=== PATIENT | female | born 1940 | race Caucasian/White ===

== ENCOUNTER 2016-12-14 09:06 | Outpatient (CLI) | payer MEDICARE, OTHER | END 2016-12-14 09:07 | disposition home or self-care (01) | DX: M81.0 Age-related osteoporosis without current pathological fracture (principal) ==

== ENCOUNTER 2016-12-14 09:07 | Outpatient (CLI) | payer MEDICARE, OTHER | END 2016-12-14 09:08 | disposition home or self-care (01) | DX: Z12.31 Encounter for screening mammogram for malignant neoplasm of breast (principal) ==

== ENCOUNTER 2017-09-05 10:41 | Outpatient (CLI) | payer MEDICARE, OTHER ==
--- NOTE | 2017-09-05 12:40 | CT Report ---
CT BRAIN WITHOUT CONTRAST: 09/05/2017 CLINICAL INDICATION: Vertigo, blurred vision. TECHNIQUE: Axial CT images of the brain were obtained without intravenous contrast. No previous CT is available for comparison. In accordance with CT protocol optimization, one or more of the following dose reduction techniques w ere utilized for this exam: automated exposure control, adjustment of mA and/or KV based on patient size, or use of iterative reconstructive technique. FINDINGS: The ventricles and sulci demonstrate mild symmetric enlargement. Chronic ischemic changes are seen in the periventricular white matter structures. There is no evidence of acute hemorrhage, mass effect, or midline shift. The basilar cisterns are patent. There is an air-fluid level in the right maxillary sinus, compatible with acute sinusitis. The visualized orbital contents are unremark able. IMPRESSION: ATROPHY AND CHRONIC ISCHEMIC CHANGES. ACUTE RIGHT MAXILLARY SINUS DISEASE. JOB #: [id number] EXT JOB #:[id number]
== END 2017-09-05 10:42 | disposition home or self-care (01) ==
LOC: DI 10:41
PROVIDERS: ATTEND Nurse Practitioner Family
DX: R42 Dizziness and giddiness (principal); H53.8 Other visual disturbances; G31.9 Degenerative disease of nervous system, unspecified; I67.82 Cerebral ischemia; J01.00 Acute maxillary sinusitis, unspecified
CPT/HCPCS: 70450

== ENCOUNTER 2017-12-20 12:54 | Outpatient (CLI) | payer MEDICARE, OTHER ==
--- NOTE | 2017-12-20 17:49 | CT Report ---
DATE OF SERVICE: 12/20/2017 CT BRAIN WITHOUT CONTRAST: 12/20/2017 CLINICAL INDICATION: Fall, head trauma, pain. COMPARISON: 09/05/2017. TECHNIQUE: Axial CT images of the brain were obtained without intravenous contrast. FINDINGS: The ventricles and sulci again demonstrate symmetric enlargement, compatible with atrophy. Chronic ischemic changes in the periventricular white matter structures are stable. There is no evidence of acute hemorrhage, mass effect, or midline shift. Right maxillary sinus disease is stable. The visualized intraorbital contents are unremarkable. No calvarial fracture is appreciated. IMPRESSION: STABLE ATROPHY AND CHRONIC ISCHEMIC CHANGES. NO SIGNIFICANT INTERVAL CHANGE. NO EVIDENCE OF ACUTE HEMORRHAGE. In accordance with CT protocol optimization, one or more of the following dose reduction techniques were utilized for this exam: automated exposure control, adjustment of mA and/or KV based on patient size, or use of iterative reconstructive technique. TD: 12/20/2017 18:48
--- NOTE | 2017-12-20 17:58 | XRAY Report ---
DATE OF SERVICE: 12/20/2017 THREE VIEW RIGHT KNEE: 12/20/2017 CLINICAL INDICATION: Pain, decreased range of motion. FINDINGS: AP, lateral, sunrise views of the right knee demonstrate mild osteoarthritis, with small osteophytes. There is no evidence of acute fracture or dislocation. No effusion is present. IMPRESSION: MILD RIGHT KNEE OSTEOARTHRITIS. TD: 12/20/2017 18:58
== END 2017-12-20 12:55 | disposition home or self-care (01) ==
LOC: DI 12:54
PROVIDERS: ATTEND Physician Assistant
DX: I67.82 Cerebral ischemia (principal); G31.9 Degenerative disease of nervous system, unspecified; M17.11 Unilateral primary osteoarthritis, right knee
CPT/HCPCS: 70450

== ENCOUNTER 2018-01-14 11:13 | Outpatient (CLI) | payer MEDICARE, OTHER ==
--- NOTE | 2018-01-15 13:28 | Mammography Report ---
DIGITAL SCREENING MAMMOGRAM: 01/14/2018 CLINICAL INDICATION: A 77-year-old, for screening. COMPARISON: 12/2016, 11/2015, 07/2013, 04/2012. TECHNIQUE: Routine CC and MLO projections were obtained of the breasts. FINDINGS: The breasts demonstrate scattered fibroglandular densities bilaterally. Coarse and punctate, typically benign calcifications are present. No suspicious masses, clustered microcalcifications, or regions of architectural distortion are identified. IMPRESSION: BENIGN FINDINGS. RECOMMENDATION: ROUTINE ANNUAL SCREENING UNLESS OTHERWISE CLINICALLY INDICATED. BIRADS CATEGORY 2-BENIGN FINDINGS. STANDARD QUALIFYING STATEMENTS: 1. This examination was reviewed with the aid of Computer-Aided Detection (CAD). 2. A negative or benign imaging report should not delay biopsy if clinically suspicious findings are present. Consider surgical consultation if warranted. More than 5% of cancers are not identified by imaging. 3. Dense breasts may obscure an underlying neoplasm. TD: 01/15/2018 13:26
== END 2018-01-14 11:14 | disposition home or self-care (01) ==
LOC: DI 11:13
PROVIDERS: ATTEND Physician Assistant
DX: Z12.31 Encounter for screening mammogram for malignant neoplasm of breast (principal)
CPT/HCPCS: 77067

== ENCOUNTER 2019-01-21 14:35 | Outpatient (CLI) | payer MEDICARE, OTHER ==
--- NOTE | 2019-01-22 10:12 | Ultrasound Report ---
Reason: OSTEOPOROSIS/DIZZINESS GIDDINESS Procedure Date: 01/21/2019 Accession Number: [id number] / [id number] Procedure: US - Carotid Doppler Complete CPT Code: FULL RESULT: EXAM: BILATERAL CAROTID AND VERTEBRAL ARTERY DUPLEX DOPPLER ULTRASOUND: EXAM DATE: 01/21/2019 04:08 PM CLINICAL HISTORY: Osteoporosis, dizziness, giddiness. COMPARISON: None. TECHNIQUE: Grayscale imaging, color Doppler, and duplex spectral Doppler were used to evaluate the carotid and vertebral arteries bilaterally. Static images were obtained. FINDINGS: The right carotid system demonstrates predominantly echogenic mild to moderate atherosclerotic disease centered around the bifurcation with up to 50% focal plaque, mixed hypoechoic soft and echogenic atherosclerotic by color Doppler and grayscale evaluation. The left external carotid artery and proximal internal carotid artery as well as left bifurcation demonstrate predominantly shadowing calcific plaque which limits visual assessment but appears subjectively less than 50%. Normal antegrade flow is present in bilateral vertebral arteries. Spectral waveforms demonstrate preserved brisk systolic upstroke throughout both carotid systems. VELOCITIES (cm/sec): RIGHT: CCA mid: PSV 66.5 cm/sec CCA dist: PSV 70.6 cm/sec ICA prox: PSV 70.0 cm/sec, EDV 17.9 cm/sec ICA mid: PSV 69.7 cm/sec, EDV 20.1 cm/sec ICA dist: PSV 57.4 cm/sec, EDV 18.7 cm/sec ECA: PSV 75.8 cm/sec Vert: PSV 39.6 cm/sec ICA/CCA: 0.99 LEFT: CCA mid: PSV 70.3 cm/sec CCA dist: PSV 62.1 cm/sec ICA prox: PSV 54.5 cm/sec, EDV 18.6 cm/sec ICA mid: PSV 61.0 cm/sec, EDV 17.1 cm/sec ICA dist: PSV 52.5 cm/sec, EDV 16.0 cm/sec ECA: PSV 92.9 cm/sec Vert: PSV 39.1 cm/sec ICA/CCA: 0.86 ICA diameter stenosis: Right: <50% by velocity and <70% by NASCET criteria. Left: <50% by velocity and <70% by NASCET criteria. IMPRESSION: 1.Subjectively less than 50% luminal narrowing of mild to moderate atherosclerotic disease centered about the carotid bifurcations bilaterally. 2. In the right carotid artery there are no elevated carotid artery velocities to suggest hemodynamically significant stenosis. 3. In the left carotid artery there are no elevated carotid artery velocities to suggest hemodynamically significant stenosis. 4. Normal antegrade flow is present in bilateral vertebral arteries. General Recommendations: Stenosis =50% ICA - Follow-up ultrasound 6-12 months Stenosis <50% ICA - High Risk Patient with plaque - Follow-up ultrasound 1-2 years Normal Study but High Risk Patient - Follow-up ultrasound 3-5 years Management recommendations and diagnostic criteria are based on current IAC endorsed standards in Carotid Artery Stenosis: Grayscale and Doppler Ultrasound Diagnosis. Validated velocity measurements with angiographic measurements and velocity criteria are extrapolated from diameter data as defined by the Society of Radiologists in Ultrasound Consensus Conference Radiology 2003; 229;340-346. RADIA
--- NOTE | 2019-01-22 16:15 | CT Report ---
Reason: OSTEOPOROSIS/DIZZINESS 7 GIDDINESS Procedure Date: 01/21/2019 Accession Number: [id number] / [id number] Procedure: CT - HEAD WO CPT Code: FULL RESULT: EXAM: CT HEAD EXAM DATE: 01/21/2019 04:31 PM. CLINICAL HISTORY: OSTEOPOROSIS/DIZZINESS 7 GIDDINESS. COMPARISON: HEAD W/O 12/20/2017 1:14 PM. TECHNIQUE: Multiaxial CT images were obtained from the foramen magnum to the vertex. Reformats: Sagittal and coronal. IV contrast: None. In accordance with CT protocol optimization, one or more of the following dose reduction techniques were utilized for this exam: automated exposure control, adjustment of mA and/or KV based on patient size, or use of iterative reconstructive technique. FINDINGS: Parenchyma: No intraparenchymal hemorrhage. No evidence of mass, midline shift, or CT findings of infarction. Madsen-white differentiation is distinct. Chronic ischemic white matter changes are again seen, similar to before. Extraaxial Spaces: Symmetric prominence of extra-axial spaces in the ventricular system. No subdural or epidural collections identified. Ventricles: Stable in size and configuration. Sinuses and Orbits: Imaged paranasal sinuses, orbits, and mastoids show no significant abnormality. Bones: No evidence of fracture or calvarial defect. Other: None. IMPRESSION: Mild changes of chronic small vessel ischemic disease, similar to prior. No acute intracranial abnormality. RADIA
== END 2019-01-21 14:36 | disposition home or self-care (01) ==
LOC: DI 14:35
PROVIDERS: ATTEND Physician Assistant
DX: R42 Dizziness and giddiness (principal); M81.0 Age-related osteoporosis without current pathological fracture
CPT/HCPCS: 70450; 93880

== ENCOUNTER 2019-02-13 14:10 | Outpatient (CLI) | payer MEDICARE, OTHER ==
--- NOTE | 2019-02-16 08:46 | DEXA Report ---
Reason: OSTEOPOROSIS/DIZZINESS GIDDINESS Procedure Date: 02/13/2019 Accession Number: [id number] / [id number] Procedure: DEX - Dexa Spine and/or Hip CPT Code: FULL RESULT: EXAM: Dexa Spine and/or Hip DATE: 02/13/2019 2:31 PM CLINICAL HISTORY: OSTEOPOROSIS/DIZZINESS GIDDINESS TECHNIQUE: Dual energy x-ray absorptiometry (DXA) was performed on a Doblet System. Regions measured are the AP Spine, femoral neck, and if needed forearm. COMPARISON: 12/14/2016 In accordance with the International Society for Clinical Densitometry (ISCD) guidelines, data from previous exams may be reanalyzed using current recommendations and techniques. This is done to allow a more accurate basis for comparison with the current study. FINDINGS: The data for the lumbar spine is as follows: BMD (g/cm/cm) T-SCORE Z-SCORE REGION L1 0.784 -2.9 -1.6 L2 0.849 -2.9 -1.7 L3 0.846 -3.0 -1.7 L4 0.925 -2.3 -1.0 TOTAL 0.857 -2.7 -1.4 NOTE: All evaluable vertebrae are used for classification The data for the hip is as follows: BMD (g/cm/cm) T-SCORE Z-SCORE REGION Neck 0.635 -2.9 -1.1 TOTAL 0.715 -2.3 -0.7 NOTE: The femoral neck or total proximal femur, whichever is lowest, is used for classification. DXA RESULTS SUMMARY: Spine SCAN DATE AGE BMD CHANGE VS CHANGE VS PREVIOUS PREVIOUS % [age]/2019 [age] 0.857 -0.069* -7.5* 12[age]14[birth year]2016 [age] 0[age]926 * Denotes significant change at the 95% confidence level. Denotes dissimilar scan types or analysis methods. DXA RESULTS SUMMARY: Hip SCAN DATE AGE BMD CHANGE VS CHANGE VS PREVIOUS PREVIOUS % [birth year]13/2019 80.7 0.715 -0.070* -8.9* 12[age]14[birth year]2016 [age] 0.785 * Denotes significant change at the 95% confidence level. Denotes dissimilar scan types or analysis methods. IMPRESSION: THE WHO CLASSIFICATION BASED ON THE INTERNATIONAL REFERENCE STANDARD IS OSTEOPOROSIS. THE FRACTURE RISK IS HIGH. RECOMMENDATION: Patients with diagnosis of osteoporosis or osteopenia should have regular bone mineral density assessment. For those eligible for Medicare, routine testing is allowed once every 2 years. Testing frequency can be increased for patients who have rapidly progressing disease or for those who are receiving medical therapy to restore bone mass. COMMENT: World Health Organization (WHO) definitions for osteoporosis and osteopenia: NORMAL BMD: T-score at -1.0 or higher, fracture risk is low OSTEOPENIA BMD: T-score between -1.0 and -2.5, fracture risk is increased. OSTEOPOROSIS BMD: T-score at -2.5 or lower, fracture risk is high. National Osteoporosis Foundation recommends: 1. Obtain adequate dietary calcium (at least 1200 mg per day) and vitamin D (400-800 international units per day). 2. Participate, as appropriate, in regular weightbearing and muscle-strengthening exercise. 3. Avoid tobacco use and reduce alcohol and caffeine intake. 4. For more detailed information see the website at www.NOF.org.
== END 2019-02-13 14:11 | disposition home or self-care (01) ==
LOC: DI 14:10
PROVIDERS: ATTEND Physician Assistant
DX: M81.0 Age-related osteoporosis without current pathological fracture (principal)
CPT/HCPCS: 77080

== ENCOUNTER 2019-03-18 15:32 | Outpatient (CLI) | payer MEDICARE, OTHER ==
--- NOTE | 2019-03-18 16:59 | Mammography Report ---
Reason: SCREENING MAMMO Procedure Date: 03/18/2019 Accession Number: [id number] / [id number] Procedure: MAIKEL - Screening Mammo w/Chad CPT Code: FULL RESULT: EXAM: Screening Mammo w/Chad DATE: 03/18/2019 4:02 PM CLINICAL HISTORY: Screening examination. TECHNIQUE: (B) - Bilateral CC and MLO views were obtained. COMPARISON: 01/14/2018, 12/14/2016 PARENCHYMAL PATTERN: (A) - The breasts demonstrate scattered fibroglandular densities bilaterally. FINDINGS: There are no suspicious masses, calcifications, or areas of distortion. IMPRESSION: Negative examination. BI-RADS category 1. RECOMMENDATION: (ANNUAL) - Recommend routine annual screening mammography. BI-RADS CATEGORY: (1) - Negative. STANDARD QUALIFYING STATEMENTS: 1. This examination was not reviewed with the aid of Computer-Aided Detection (CAD). 2. A negative or benign imaging report should not preclude biopsy if clinically suspicious findings are present. 3. Dense breasts may obscure an underlying neoplasm. 4. This examination was reviewed with the aid of 3D breast imaging (tomosynthesis).
== END 2019-03-18 15:33 | disposition home or self-care (01) ==
LOC: DI 15:32
PROVIDERS: ATTEND Physician Assistant
DX: Z12.31 Encounter for screening mammogram for malignant neoplasm of breast (principal)
CPT/HCPCS: 77063; 77067

== ENCOUNTER 2019-04-17 12:37 | Outpatient (CLI) | payer MEDICARE, OTHER ==
--- NOTE | 2019-04-18 15:05 | XRAY Report ---
Reason: INTERCOSTAL PAIN Procedure Date: 04/17/2019 Accession Number: [id number] / [id number] Procedure: XR - Chest 2 View X-Ray CPT Code: 46374 FULL RESULT: EXAM: CHEST RADIOGRAPHY EXAM DATE: 04/17/2019 12:55 PM. CLINICAL HISTORY: INTERCOSTAL PAIN. COMPARISON: CHEST 2 VIEW PA/LAT 12/05/2014 8:28 PM. TECHNIQUE: 2 views. FINDINGS: Lungs/Pleura: No focal opacities evident. No pleural effusion. No pneumothorax. Normal volumes. Mediastinum: Heart size is within normal limits. There is thoracic aortic calcification. Other: None. IMPRESSION: No acute intrathoracic plain film abnormality. RADIA
== END 2019-04-17 12:38 | disposition home or self-care (01) ==
LOC: DI 12:37
PROVIDERS: ATTEND Physician Assistant
DX: R07.82 Intercostal pain (principal)
CPT/HCPCS: 71046

== ENCOUNTER 2019-06-03 09:51 | Outpatient (CLI) | payer MEDICARE, OTHER | END 2019-06-03 09:52 | disposition home or self-care (01) | LOC: DI 09:51 | PROVIDERS: ATTEND Physician Assistant | DX: R01.1 Cardiac murmur, unspecified (principal); I34.0 Nonrheumatic mitral (valve) insufficiency | CPT/HCPCS: 93306 ==

== ENCOUNTER 2020-09-22 15:04 | Outpatient (CLI) | payer MEDICARE, OTHER ==
--- NOTE | 2020-09-26 16:24 | Mammography Report ---
BILATERAL DIGITAL SCREENING MAMMOGRAM 3D/2D: 09/22/2020 CLINICAL: Routine screening. Comparison is made to exams dated: 03/15/2019 mammogram, 01/14/2018 mammogram, 12/14/2016 mammogram, mammogram, 07/27/2013 mammogram, and 04/21/2012 mammogram - [facility]. Ther e are scattered fibroglandular elements in both breasts. No significant masses, calcifications, or other findings are seen in either breast. There has been no significant interval change. IMPRESSION: NEGATIVE There is no mammographic evidence of malignancy. A 1 year screening mammogram is recommended. This exam was interpreted at Station ID: [id number]. NOTE: For mammograms, a report in lay terms will be sent to the patient. Approximately 15% of breast malignancies will not be visualized mammographically. In the management of a palpable breast mass, a negative mammogram must not discourage biopsy of a clinically suspicious lesion. Electronically Signed By: Sigrid payan/raquel:09/23/2020 13:29:24 ACR BI-RADS Category 1: Negative 3341F PARENCHYMAL PATTERN: (A) - The breast(s) demonstrate(s) scattered fibroglandular densities. BI-RADS CATEGORY: (1) - 1 RECOMMENDATION: (ANNUAL) - Recommend routine annual screening mammography. [id number] 1 year screening LATERALITY: (B)
== END 2020-09-22 15:05 | disposition home or self-care (01) ==
LOC: DI.N 15:04
PROVIDERS: ATTEND Physician Assistant
DX: Z12.31 Encounter for screening mammogram for malignant neoplasm of breast (principal)
CPT/HCPCS: 77063; 77067

== ENCOUNTER 2021-02-05 13:12 | Emergency (ER) | payer MEDICARE, OTHER ==
--- NOTE | 2021-02-05 13:45 | ED Physician Documentation ---
PD HPI FEMALE - Stated complaint Stated Complaint: BLOOD IN URINE - Chief complaint Chief Complaint: Abd Pain - History obtained from History obtained from: Patient - Additional information Additional information: About a week or 2 of cloudy murky urine and very mild right flank pain. Today she had gross hematuria. There is no urgency or dysuria. Denies fevers or nausea. Review of Systems Constitutional: denies: Fever, Chills Cardiac: denies: Chest pain / pressure, Palpitations Respiratory: denies: Dyspnea, Cough PD PAST MEDICAL HISTORY - Past Medical History Cardiovascular: High cholesterol Respiratory: None Endocrine/Autoimmune: None GI: GERD, Chronic constipation WINE STEWARD: None : Retention, Frequency HEENT: None Psych: None, Depression Musculoskeletal: Osteoarthritis, Osteoporosis Derm: None - Past Surgical History Past Surgical History: Yes General: Appendectomy /WINE STEWARD: Oophrectomy, Other (salpingectomy) - Present Medications Home Medications: Ambulatory Orders Medication Instructions Recorded Confirmed Escitalopram Oxalate [Lexapro] 20 mg PO DAILY 09/19/13 12/05/14 Lamotrigine 50 mg PO BID 09/19/13 12/05/14 Flaxseed/Omega3,6,9/Fatty Acid 1 each PO 10/01/13 12/05/14 [Flax Seed Oil 1,300 mg Softgel] Lorazepam 1 mg PO 10/01/13 12/05/14 Magnesium Oxide [Magnesium] 250 mg PO 10/01/13 12/05/14 Multivitamin [Multi-Vitamin Daily] 1 each PO 10/01/13 12/05/14 Omeprazole [Prilosec] 40 mg PO 10/01/13 12/05/14 Ranitidine HCl [Acid Remote Recruiter] 150 mg PO 10/01/13 12/05/14 Vit D3-Vit K/Berberine/Hops 1 each PO 10/01/13 12/05/14 [Ostera Tablet] Azithromycin [Zithromax] 250 mg PO DAILY #4 tablet 12/05/14 guaiFENesin/CODEINE [Robitussin AC] 5 - 10 ml PO Q6H PRN #120 ml 12/05/14 Ciprofloxacin HCl [Cipro] 500 mg PO BID #20 tablet 02/05/21 - Allergies Allergies/Adverse Reactions: Allergies Allergy/AdvReac Type Severity Reaction Status Date / Time chlordiazepoxide HCl * Allergy Rash Verified 02/05/21 13:23 [From Librium] phenobarbital Allergy Rash Verified 02/05/21 13:23 - Social History Does the pt smoke?: No Smoking Status: Unknown if ever smoked Does the pt drink ETOH?: Yes Does the pt have substance abuse?: No - Immunizations Immunizations are current?: No Immunizations: No immun - POLST Patient has POLST: No PD ED PE NORMAL - Vitals Vital signs reviewed: Yes - General General: Alert and oriented X 3, No acute distress - Abdomen Abdomen: Soft, Non tender - Back Back: No CVA TTP - Neuro Neuro: Alert and oriented X 3, Normal speech Results - Vitals Vitals: Vital Signs - 24 hr 02/05/21 13:15 Temperature 36.7 C Heart Rate 75 Respiratory 17 Rate Blood Pressure 128/68 O2 Saturation 100 Oxygen O2 Source Room air - Labs Labs: Laboratory Tests 02/05/21 13:50 Urine Color YELLOW Urine Clarity CLOUDY Urine pH 7.0 Ur Specific [place] 1.020 Urine Protein 30 H Urine Glucose (UA) NEGATIVE Urine Ketones NEGATIVE Urine Occult Blood LARGE H Urine Nitrite NEGATIVE Urine Bilirubin NEGATIVE Urine Urobilinogen 0.2 (NORMAL) Ur Leukocyte Esterase LARGE H Urine RBC 6-10 H Urine WBC >25 H Ur Squamous Epith Cells RARE Squamous Urine Bacteria Few Ur Microscopic Review INDICATED Urine Culture Comments INDICATED Departure - Departure Disposition: 01 Home, Self Care Clinical Impression: Pyelonephritis Condition: Good Record reviewed to determine appropriate education?: Yes Instructions: ED Kidney Infec Female Prescriptions: Ciprofloxacin HCl [Cipro] 500 mg PO BID #20 tablet Comments: You do have a you have evidence of a urinary tract infection, probably up into the kidney a bit with that pain you are having on the right side. Antibiotic should help. We will culture your urine, if a resistant organism is identified we will call you in a few days to change your antibiotics. Return if you worsen. The blood in the urine should stop after a day or 2. Follow-up with your primary care physician this coming week.
[2021-02-05 14:05] LABS: BILIRUBIN,URINE NEGATIVE (NEGATIVE); GLUCOSE, URINE (UA) NEGATIVE (NEGATIVE); KETONES,URINE (UA) NEGATIVE (NEGATIVE); LEUKOCYTE ESTERASE, URINE LARGE (NEGATIVE); NITRITE,URINE NEGATIVE (NEGATIVE); OCCULT BLOOD,URINE LARGE (NEGATIVE); PROTEIN,URINE 30 mg/dL (NEGATIVE); UROBILINOGEN,URINE 0.2 (NORMAL) E.U./dL (NORMAL)
[2021-02-05 14:16] LABS: BACTERIA,URINE Few /HPF (None Seen); CLARITY,URINE CLOUDY (CLEAR); SQUAMOUS EPITHELIAL CELL,UR RARE Squamous (<= Few); WBC,URINE >25 /HPF (0-5)
[2021-02-05] MEDS ORDERED: CIPROFLOXACIN 250 MG TABLET PO STA (14:17)
[2021-02-05 14:30] VITALS: BP 136/58
== END 2021-02-05 14:30 | disposition home or self-care (01) ==
LOC: ED 13:12
DX: N12 Tubulo-interstitial nephritis, not specified as acute or chronic (principal); I65.22 Occlusion and stenosis of left carotid artery
CPT/HCPCS: 81001; 87077; 87086; 87181; 93880; 99283; A9270; 81003

== ENCOUNTER 2021-02-05 16:19 | Outpatient (CLI) | payer MEDICARE, OTHER ==
--- NOTE | 2021-02-06 08:58 | Ultrasound Report ---
PROCEDURE: Carotid Doppler Complete INDICATIONS: CAROTID ARTERY STENOSIS TECHNIQUE: Color and pulse Doppler interrogation was performed of both carotid systems, with image documentation and velocity measurements. COMPARISON: None. FINDINGS: Right side: Brachial blood pressure: 159/72 mm Hg. Common carotid artery peak systolic velocity: 86.6 cm/sec, previously 70.6 cm/sec. Internal carotid artery peak systolic velocity: 88.8 cm/sec, previously 70.0 cm/sec. Internal carotid artery end diastolic velocity: 20.0 cm/sec, previously 17.9 cm/sec. External carotid artery peak systolic velocity: 104.8 cm/sec, previously 75.8 cm/sec. ICA/CCA peak systolic ratio: 1.1, previously 0.99 . Madsen scale imaging description: There is mild echogenic plaque present in the carotid bifurcation ex tending into the internal carotid artery. There is no flow limiting stenosis noted. Percent internal carotid artery stenosis: Less than 50% . Vertebral artery: Flow direction is antegrade. Left side: Brachial blood pressure: 143/62 mm Hg. Common carotid artery peak systolic velocity: 89.4 cm/sec, previously 70.3 cm/sec. Internal carotid artery peak systolic velocity: 141.2 cm/sec, previously 61.0 cm/sec. Internal carotid artery end diastolic velocity: 29.6 cm/sec, previously 17.1 cm/sec. External carotid artery peak systolic velocity: 98.0 cm/sec, previously 92.9 cm/sec. ICA/CCA peak systolic ratio: 0.6, previously 0.86 . Madsen scale imaging description: By velocity measurements, stenosis is between 50 and 69%. By graysca le imaging, stenosis is 50% or less. Percent internal carotid artery stenosis: 50% or less . Vertebral artery: Flow direction is antegrade. IMPRESSION: 1. Mild, less than 50% right internal carotid artery stenosis. 2. Left internal carotid artery stenosis is moderate by velocity criteria, 50-69%. By grayscale imagi ng, the stenosis is 50% or less. Reviewed by: Paulino Eugene MD on 02/06/2021 7:57 AM RUST Approved by: Paulino Eugene MD on 02/06/2021 7:57 AM RUST Station ID: [id number]
== END 2021-02-05 16:20 | disposition home or self-care (01) ==
LOC: DI 16:19
PROVIDERS: ATTEND Registered Nurse
DX: I65.22 Occlusion and stenosis of left carotid artery (principal)
CPT/HCPCS: 93880

== ENCOUNTER 2021-03-01 12:58 | Outpatient (CLI) | payer MEDICARE, OTHER ==
--- NOTE | 2021-03-01 16:30 | DEXA Report ---
PROCEDURE: Dexa Spine and/or Hip INDICATIONS: OSTEOPOROSIS TECHNIQUE: Dual energy x-ray absorptiometry (DXA) was performed on a Exepron System. Regions measur ed are the AP Spine, femoral neck, and if needed forearm. COMPARISON: None. FINDINGS: Lumbar Spine: Bone Mineral Density 0.865 g/cm/cm,T score -2.6, compared to -2.7 Left Hip: Bone Mineral Density 0.683 g/cm/cm,T score -2.6, compared to -2.3 Left Femoral Neck: Bone Mineral Density 0.599 g/cm/cm, T score -3.2, compared to -2.9 (T score greater or equal to -1.0: NORMAL) (T score from -1.1 to -2.4: OSTEOPENIA) (T score less than or equal to -2.5 to: OSTEOPOROSIS) Impression: Progressive osteoporosis within the left femoral neck as well as progression from osteope josefina to osteoporosis in the left hip. Relatively stable appearance of osteoporosis in the spine. Patients with diagnosis of osteoporosis or osteopenia should have regular bone mineral density assess ment. For those eligible for Medicare, routine testing is allowed once every 2 years. Testing frequ ency can be increased for patients who have rapidly progressing disease or for those who are receivin g medical therapy to restore bone mass. Reviewed by: Dianne Priest MD on 03/01/2021 4:28 PM PDT Approved by: Dianne Priest MD on 03/01/2021 4:28 PM PDT Station ID: [id number]
== END 2021-03-01 12:59 | disposition home or self-care (01) ==
LOC: DI 12:58
PROVIDERS: ATTEND Registered Nurse
DX: M81.0 Age-related osteoporosis without current pathological fracture (principal)

== ENCOUNTER 2021-10-27 16:05 | Outpatient (CLI) | payer MEDICARE, OTHER | END 2021-10-27 23:59 | disposition home or self-care (01) | LOC: LAB 16:05 | PROVIDERS: ATTEND Physician Assistant | DX: N30.01 Acute cystitis with hematuria (principal) | CPT/HCPCS: 87077; 87086; 87181 ==

== ENCOUNTER 2021-11-18 08:00 | Outpatient (CLI) | payer MEDICARE, OTHER ==
[2021-11-18 18:10] LABS: BILIRUBIN,URINE NEGATIVE (NEGATIVE); GLUCOSE, URINE (UA) NEGATIVE (NEGATIVE); KETONES,URINE (UA) NEGATIVE (NEGATIVE); LEUKOCYTE ESTERASE, URINE LARGE (NEGATIVE); NITRITE,URINE NEGATIVE (NEGATIVE); OCCULT BLOOD,URINE MODERATE (NEGATIVE); PH,URINE 6.5 PH (5.0-7.5); PROTEIN,URINE NEGATIVE (NEGATIVE); UROBILINOGEN,URINE 0.2 (NORMAL) E.U./dL (NORMAL)
[2021-11-18 18:13] LABS: CLARITY,URINE HAZY (CLEAR)
[2021-11-18 18:26] LABS: BACTERIA,URINE Many /HPF (None Seen); RBC,URINE TNTC /HPF (0-5); SQUAMOUS EPITHELIAL CELL,UR NONE SEEN (<= Few); WBC,URINE >25 /HPF (0-5)
== END 2021-11-18 23:59 ==
LOC: LAB 08:00
PROVIDERS: ATTEND Emergency Medicine
DX: R39.15 Urgency of urination (principal)
CPT/HCPCS: 81001; 87086

== ENCOUNTER 2021-12-13 15:13 | Outpatient (CLI) | payer MEDICARE, OTHER ==
--- NOTE | 2021-12-13 16:41 | XRAY Report ---
PROCEDURE: Chest 2 View X-Ray INDICATIONS: SUBACUTE COUGH TECHNIQUE: 2 view(s) of the chest. COMPARISON: April 17, 2019. FINDINGS: SUPPORT DEVICES: None. LUNGS/PLEURA: Biapical pleural thickening/scarring. Hyperaeration with coarsened interstitial marking s. No focal consolidation, pleural effusion or space-occupying pneumothorax. MEDIASTINUM: The cardiomediastinal silhouette is within normal limits. BONES/SOFT TISSUES: No acute abnormality. IMPRESSION: 1.No acute cardiopulmonary abnormality. Reviewed by: Elian Sykes MD on 12/13/2021 4:39 PM PST Approved by: Elian Sykes MD on 12/13/2021 4:39 PM PST Station ID: [id number]
== END 2021-12-13 15:14 | disposition home or self-care (01) ==
LOC: DI 15:13
PROVIDERS: ATTEND Registered Nurse
DX: R05.2 Subacute cough (principal)

== ENCOUNTER 2022-01-18 11:19 | Outpatient (CLI) | payer MEDICARE, OTHER ==
--- NOTE | 2022-01-18 17:07 | XRAY Report ---
PROCEDURE: Knee 3 View BILAT INDICATIONS: BILATERAL KNEE PAIN TECHNIQUE: 3 views of the right and left knee(s) were acquired. COMPARISON: None. FINDINGS: Bones: No fractures or dislocations. No suspicious bony lesions. Moderate osteophytic degenerative changes noted in the right knee lateral compartment, left knee medial compartment bilateral knee blackman llofemoral compartments. Mild osteophytic degenerative changes noted in the right knee medial compart ment and the left knee lateral compartment. Soft tissues: No joint effusion. No suspicious soft tissue calcifications. IMPRESSION: Bilateral knee osteoarthritis. Reviewed by: Magaly Weber MD, PhD on 01/18/2022 5:06 PM PST Approved by: Magaly Weber MD, PhD on 01/18/2022 5:06 PM PST Station ID: [id number]
== END 2022-01-18 11:20 | disposition home or self-care (01) ==
LOC: DI.S 11:19
PROVIDERS: ATTEND Registered Nurse
DX: M17.0 Bilateral primary osteoarthritis of knee (principal)

== ENCOUNTER 2022-05-12 08:00 | Outpatient (CLI) | payer MEDICARE, OTHER ==
--- NOTE | 2022-05-12 16:24 | XRAY Report ---
PROCEDURE: Hip w/Pelvis 1V LT INDICATIONS: LEFT HIP PAIN AFTER FALL TECHNIQUE: AP pelvis with AP and lateral views of the left hip. COMPARISON: None. FINDINGS: Bones: No fractures or dislocations. Pelvic ring appears intact. No suspicious bony lesions. Dege nerative changes are seen in the included lower lumbar spine. Mild bilateral hip osteoarthrosis. Soft tissues: The visualized bowel gas pattern is normal. No suspicious soft tissue calcifications. IMPRESSION: No acute osseous abnormality. If there is clinical concern or persistent symptoms, addit ional imaging such as repeat radiographs or advanced imaging (e.g. CT, MRI) may be helpful for furthe r evaluation. Reviewed by: Jose Antonio Mckeon MD on 05/12/2022 4:22 PM PDT Approved by: Jose Antonio Mckeon MD on 05/12/2022 4:22 PM PDT Station ID: [id number]
== END 2022-05-12 23:59 | disposition home or self-care (01) ==
LOC: DI.S 08:00
PROVIDERS: ATTEND Physician Assistant Medical
DX: M25.552 Pain in left hip (principal)

== ENCOUNTER 2022-09-26 18:15 | Emergency (ER) | payer MEDICARE, OTHER ==
[2022-09-26] MEDS ORDERED: ACETAMINOPHEN 500 MG TABLET PO STA (18:32)
--- NOTE | 2022-09-26 18:34 | ED Physician Documentation ---
PD HPI MAJOR TRAUMA - Stated complaint Stated Complaint: FALL/RIB PX - Chief complaint Chief Complaint: Trauma Hd/Nk - History obtained from History obtained from: Patient - Additional information Additional information: This is a very pleasant 82-year-old woman who had a trip and fall, mechanical fall without syncope at [facility]. She is anticoagulated on Eliquis for atrial fibrillation. She hit the left side of her head and face on the ground and also injured her left ribs. No other injuries. Here with her . 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 HEENT: None Psych: None, Depression Musculoskeletal: Osteoarthritis, Osteoporosis Derm: None - Past Surgical History Past Surgical History: Yes General: Appendectomy /INSEMINATION WORKER: Oophrectomy, Other (salpingectomy) - Present Medications Home Medications: Ambulatory Orders Medication Instructions Recorded Confirmed Escitalopram Oxalate [Lexapro] 20 mg PO DAILY 09/19/13 09/26/22 Apixaban [Eliquis] 5 mg ORAL BID 09/26/22 09/26/22 Atorvastatin Calcium 40 mg PO HS 09/26/22 09/26/22 HYDROcod/ACETAM 5/325 [[place] 5/325] 1 - 2 tab PO Q6H PRN #20 tablet 09/26/22 Lidocaine Patch 5% [Lidoderm Patch] 1 patch TOP DAILY PRN #10 patch 09/26/22 Metoprolol Succinate [Toprol Xl] 25 mg PO DAILY 09/26/22 09/26/22 - Allergies Allergies/Adverse Reactions: Allergies Allergy/AdvReac Type Severity Reaction Status Date / Time chlordiazepoxide HCl * Allergy Rash Verified 09/26/22 18:21 [From Librium] phenobarbital Allergy Rash Verified 09/26/22 18:21 - Social History Does the pt smoke?: No Smoking Status: Unknown if ever smoked Does the pt drink ETOH?: Yes Does the pt have substance abuse?: No - Immunizations Immunizations are current?: No Immunizations: No immun - POLST Patient has POLST: No PD ED PE NORMAL - Vitals Vital signs reviewed: Yes - General General: Alert and oriented X 3, No acute distress - HEENT HEENT: PERRL, EOMI, Other (Mild tenderness of the left cheek inferior to the orbit. No swelling or obvious ecchymosis.) - Neck Neck: No bony TTP (But will CT given mechanism and advanced age) - Cardiac Cardiac: RRR, No murmur - Respiratory Respiratory: No respiratory distress, Clear bilaterally, Other (Mild diffuse left chest wall tenderness) - Abdomen Abdomen: Soft, Non tender - Back Back: No CVA TTP, No spinal TTP - Derm Derm: Normal color, Warm and dry - Extremities Extremities: No edema, No calf tenderness / cord - Neuro Neuro: Alert and oriented X 3, Normal speech Eye Opening: Spontaneous Motor: Obeys Commands Verbal: Oriented GCS Score: 15 Results - Vitals Vitals: Vital Signs - 24 hr 09/26/22 09/26/22 09/26/22 18:19 18:32 19:34 Temperature 36.2 C L Heart Rate 86 82 80 Respiratory 23 19 24 Rate Blood Pressure 161/89 H 149/86 H O2 Saturation 100 99 100 09/26/22 20:30 Temperature Heart Rate 76 Respiratory 15 Rate Blood Pressure 148/73 H O2 Saturation 98 Oxygen O2 Source Room air - Rads (name of study) CT of the head and cervical spine without contrast without trauma, severe degenerative changes in the spine Radiology: EMP read contemporaneously CT Face Radiology: EMP read contemporaneously (Maxiallary sinus dz, NAD) CT Chest Radiology: EMP read contemporaneously (2 nondisplaced rib fractures, atherosclerosis, cholelithiasis, 7 mm right upper lobe nodule.) PD MEDICAL DECISION MAKING - ED course ED course: 82-year-old woman with ground-level fall, a lot of left-sided chest pain but also some facial and head injuries. CT is negative for trauma with exception of 2 rib fractures with multiple incidental findings most notably cholelithiasis and a pulmonary nodule which was discussed with patient and at bedside and discussed the need for follow-up imaging for the pulmonary nodule and they are understanding. Departure - Departure Disposition: 01 Home, Self Care Clinical Impression: Fall from ground level, Pulmonary nodule, Adequate anticoagulation on anticoagulant therapy Head injury Qualifiers: Encounter type: initial encounter Qualified Code(s): S09.90XA - Unspecified injury of head, initial encounter Facial contusion Qualifiers: Encounter type: initial encounter Qualified Code(s): S00.83XA - Contusion of other part of head, initial encounter Chest wall contusion Qualifiers: Encounter type: initial encounter Laterality: left Qualified Code(s): S20.212A - Contusion of left front wall of thorax, initial encounter Rib fracture Qualifiers: Encounter type: initial encounter Rib fracture type: multiple ribs Fracture type: closed Laterality: left Qualified Code(s): S22.42XA - Multiple fractures of ribs, left side, initial encounter for closed fracture Condition: Good Record reviewed to determine appropriate education?: Yes Instructions: ED Contusion Chest Wall, ED Head Injury Closed Prescriptions: Lidocaine Patch 5% [Lidoderm Patch] 1 patch TOP DAILY PRN #10 patch PRN Reason: pain HYDROcod/ACETAM 5/325 [[place] 5/325] 1 - 2 tab PO Q6H PRN #20 tablet PRN Reason: Pain Comments: The only traumatic findings found on imaging tonight are the 2 rib fractures, the left ninth and 10th ribs. Incidental findings include gallstones, fluid in your sinus, significant arthritis in the neck, and a right upper lobe pulmonary nodule for which you should have repeat CT imaging in 6 to 12 months. That said it is not unlikely this could be related to-year-old tuberculosis and scarring. I sent prescriptions electronically to [facility] in [place]. When pain is mild, you can take 2 extra strength Tylenol, 1000 mg every 6 hours for pain and aches. I am also prescribing some lidocaine patches. Return for new or worsening symptoms. I am prescribing a short course of narcotic pain medication for you. These are potentially dangerous and addictive medications that should be used carefully. These medications may constipate you. Take an udei-swe-ndgukgz stool softener (docusate) twice daily with plenty of water while taking these medications. If you go 24 hours without a bowel movement, take bzhx-nmj-apujuod miralax, per package instructions. Do not drink or drive while taking these medications. If you received narcotic or sedating medications while in the emergency department, do not drive for 24 hours. Store this medication in a safe, secure place and out of reach of children. It is a violation of federal law to give or sell this medication to another person or to use in a manner other than prescribed. The ED will not refill narcotic prescriptions, including prescriptions lost or stolen. To dispose of unwanted medications: 1. [facility] at [address] in [place] has a medication drop box. They accept prescription medications (in pill form) Saturday through Saturday 9:00 a.m. to 5:00 p.m. 2. The [facility] accepts prescription medications (in pill form only) for disposal year round. Call for more information. 3. Contact the [facility] for the next [facility] sponsored prescription drug collection event. , [phone], or [phone]; Note that many narcotic pain relievers also contain Tylenol/acetaminophen. Please ensure that your total dose of acetaminophen from all sources does not exceed 3 g (3000 mg) per day. Discharge Date/Time: 09/26/22 20:30
[2022-09-26] MEDS ORDERED: LIDOCAINE PATCH 5% TOP STA (19:46)
--- NOTE | 2022-09-26 19:47 | CT Report ---
PROCEDURE: HEAD WO INDICATIONS: head inj TECHNIQUE: Noncontrast 4.5 mm thick angled axial sections acquired from the foramen magnum to the vertex. For r adiation dose reduction, the following was used: automated exposure control, adjustment of mA and/or kV according to patient size. COMPARISON: 01/21/2019. FINDINGS: Image quality: Excellent. CSF spaces: Basal cisterns are patent. No extra-axial fluid collections. Ventricles are normal in size and shape. Brain: No midline shift. No intracranial masses or hemorrhage. No mass effect. Madsen-white matter i nterface is normal. There cerebral volume loss for age with resultant ventricular and sulcal prominen ce. There are periventricular and deep white matter chronic small vessel ischemic changes. Atheroscle rotic calcifications are noted in the intracranial segments of the bilateral internal carotid arterie s. Skull and face: Calvarium and visualized facial bones are intact, without suspicious lesions. Sinuses: Right maxillary sinus mucosal thickening versus mucus no. Other visualized sinuses and mast oids are clear. IMPRESSION: CT head without acute intracranial abnormalities or acute calvarial fractures. Reviewed by: Tom Grissom MD on 09/26/2022 7:46 PM PDT Approved by: Tom Grissom MD on 09/26/2022 7:46 PM PDT Station ID: [id number]
--- NOTE | 2022-09-26 19:51 | CT Report ---
PROCEDURE: CERVICAL SPINE WO INDICATIONS: neck pain fall TECHNIQUE: Noncontrast 3 mm thick sections acquired from the skull base to the T4 level. Sagittal and coronal r eformats were then constructed. For radiation dose reduction, the following was used: automated exp osure control, adjustment of mA and/or kV according to patient size. COMPARISON: None. FINDINGS: Image quality: Excellent. Bones: No acute fractures or dislocations. Minimal grade 1 anterolisthesis of C4 on C5 likely relate d to moderate degenerative changes of the facet joints at this level. Severe multilevel cervical spon dylosis noted throughout the cervical spine most pronounced from C5-6 through C7-T1. Craniocervical j unction is intact. No asymmetric widening of the facet joints. Degenerative changes of the bilateral mandibular joints. Visualized superior ribs are intact. Soft tissues: Prevertebral soft tissues are normal in thickness. No paravertebral hematomas. No ap ical pneumothoraces. IMPRESSION: 1. CT cervical spine without acute fracture or traumatic malalignment. 2. Severe multilevel cervical spondylosis most pronounced from C5-6 through C7-T1 with minimal grade 1 anterolisthesis of C4 on C5 likely related to moderate bilateral facet arthropathy at this level. Reviewed by: Tom Grissom MD on 09/26/2022 7:50 PM PDT Approved by: Tom Grissom MD on 09/26/2022 7:50 PM PDT Station ID: [id number]
--- NOTE | 2022-09-26 19:54 | CT Report ---
PROCEDURE: MAXILLOFACIAL WO INDICATIONS: face inj TECHNIQUE: Noncontrast 1.5 mm thick axial images acquired from the mandible through the frontal sinuses, with co lance and sagittal reformatting. For radiation dose reduction, the following was used: automated ex posure control, adjustment of mA and/or kV according to patient size. COMPARISON: None. FINDINGS: Image quality: Excellent. Bones and teeth: Orbital kern are intact. Sinus kern show no fracture or deformity. Nasal bones and septum are intact. Visualized portions of the mandible demonstrate no fractures or subluxation. Zygomatic arches are intact. Pterygoid plates are intact. Visualized portions of the skull base an d auditory canals are intact. Degenerative changes of the bilateral temporomandibular joints. Sinuses: Right maxillary sinus mucous retention cyst versus focal mucosal thickening. Remainder of t he paranasal sinuses are aerated, without fluid levels, mucosal thickening, or mucoceles. Mastoid ai r cells are aerated. Soft tissues: No substantial edema, masses, or fluid collections. No enlarged lymph nodes. No soft tissue lacerations or debris. Vascular: Visualized vascular structures appear normal in the absence of contrast. Bony vascular fo ramina and canals are intact. IMPRESSION: No acute facial fractures identified. Right maxillary sinus disease. Reviewed by: Tom Grissom MD on 09/26/2022 7:53 PM PDT Approved by: Tom Grissom MD on 09/26/2022 7:53 PM PDT Station ID: [id number]
--- NOTE | 2022-09-26 20:02 | CT Report ---
PROCEDURE: CHEST WO INDICATIONS: chest inj, fall TECHNIQUE: Noncontrast 1mm axial images were acquired from the pulmonary apices to the posterior costophrenic an gles. Axial 5 mm soft tissue kernel reconstructions were performed as well as 8 mm axial MIP and cor onal and sagittal 5 mm reformations. For radiation dose reduction, the following was used: automate d exposure control, adjustment of mA and/or kV according to patient size. COMPARISON: None FINDINGS: Image quality: Patient motion artifact degrades image quality. Lungs and pleura: No acute air space opacities. There is a 7 mm right upper lobe pulmonary nodule (i mage 75/series 4). No pleural effusions or pneumothorax. Central and peripheral airways are patent a nd normal in caliber. Mediastinum: Heart size is mildly enlarged. No pericardial effusion. Atherosclerotic calcifications of the coronary arteries are present. No mediastinal adenopathy by size criteria. Thoracic aorta an d central pulmonary arteries are normal in size. Atherosclerotic calcifications of the aortic arch an d thoracic aorta. Esophagus is normal in caliber. No hiatal hernia. Bones and chest wall: Acute, nondisplaced lateral left ninth and 10th rib fractures. Overlying soft tissue swelling of the lower left lateral chest wall. No suspicious bony lesions. No acute vertebral body compression fractures. Multilevel thoracic spondylosis. No axillary or supraclavicular adenopa thy by size criteria. The thyroid is normal in size and there are no incidental findings. Abdomen: Cholelithiasis without CT evidence for acute cholecystitis. Visualized portions of the sple en appear unremarkable. No evidence for abnormal fluid collections in the imaged portions of the uppe r abdomen. Visualized portions of the liver and bilateral kidneys appear unremarkable. Hypodensities incompletely characterized likely representing cysts. Suspected peripelvic cysts of the left kidney. IMPRESSION: 1. Acute, nondisplaced lateral left ninth and 10th rib fractures with overlying lateral lower chest w all soft tissue edema. No pneumothorax. 2. Limited evaluation of the upper abdomen without evidence for acute traumatic injury to the solid o r hollow organs. 3. Cardiomegaly without acute cardiopulmonary abnormalities. 4. Atherosclerotic vascular disease. 5. Cholelithiasis without CT evidence for acute cholecystitis. 6. A 7 mm right upper lobe pulmonary nodule. Recommend follow-up chest CT in 6-12 months. CLINICAL RECOMMENDATION STATEMENTS: In patients <35 years with an ITN detected on CT, MRI, or extrathyroidal ultrasound, the Committee re commends further evaluation with dedicated thyroid ultrasound if the nodule is "e1 cm and has no susp icious imaging features, and if the patient has normal life expectancy. In patients "e35 years with an ITN detected on CT, MRI, or extrathyroidal ultrasound, the Committee r ecommends further evaluation with dedicated thyroid ultrasound if the nodule is "e1.5 cm and has no s uspicious imaging features, and if the patient has normal life expectancy. (ACR, 2014) Reviewed by: Tom Grissom MD on 09/26/2022 8:01 PM PDT Approved by: Tom Grissom MD on 09/26/2022 8:01 PM PDT Station ID: [id number]
[2022-09-26] MEDS ORDERED: HYDROcod/ACET 5/325 Prepack 4 PO STA (20:13)
[2022-09-26 20:31] VITALS: BP 148/73
== END 2022-09-26 20:30 | disposition home or self-care (01) ==
LOC: ED 18:15
DX: S09.90XA Unspecified injury of head, initial encounter (principal); W01.0XXA Fall on same level from slipping, tripping and stumbling without subsequent striking against object, initial encounter; Y92.511 Restaurant or cafe as the place of occurrence of the external cause; I48.91 Unspecified atrial fibrillation; Z79.01 Long term (current) use of anticoagulants
CPT/HCPCS: 36415; 70450; 70486; 71250; 72125; 99284; A9270

== ENCOUNTER 2022-09-28 14:45 | Emergency (ER) | payer MEDICARE, OTHER ==
[2022-09-28 14:57] VITALS: BP 144/69
--- NOTE | 2022-09-28 15:04 | ED Physician Documentation ---
PD HPI LOWER EXT INJURY - Stated complaint Stated Complaint: KNEE SWOLLEN - Chief complaint Chief Complaint: Ext Problem - History obtained from History obtained from: Patient - History of Present Illness PD HPI LOW EXT INJURY LOCATION: Left, Knee Type of injury: Fall (she had fallen 2 days ago and landed to left side/knee and ribs. Seen in ER with CT head/neck/chest/abd/pelvis with Dx of 2 rib fractures. Had some swelling to side of left knee. Able to walk at the time. Knee has gotten more swollen and now bruising around and back of knee today. Hurts for walking.) Timing - onset: How many days ago (2) Timing - duration: Days Timing - details: Abrupt onset, Still present (the bruising and swelling have gotten progressively worse the past 2 days.) Worsened by: Moving, Palpating Associated symptoms: Swelling, Discolored (purple bruising color developing). No: Weakness, Numbness Contributing factors: Anticoagulated. No: Prosthetic joint Similar symptoms before: Has not had sx before Recently seen: Emergency Dept (2 days prior s/p fall with rib/chest injury mainly.) Review of Systems Constitutional: denies: Fever, Chills Nose: denies: Rhinorrhea / runny nose, Congestion Throat: denies: Sore throat Cardiac: denies: Palpitations, Calf pain Respiratory: denies: Cough GI: denies: Abdominal Pain, Nausea, Vomiting Skin: denies: Abrasion (s), Laceration (s) Neurologic: denies: Focal weakness, Numbness, Altered mental status, Headache, Head injury PD PAST MEDICAL HISTORY - Past Medical History Cardiovascular: High cholesterol Respiratory: None Neuro: None Endocrine/Autoimmune: None GI: GERD, Chronic constipation 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, 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 HEENT: None Psych: None, Depression Musculoskeletal: Osteoarthritis, Osteoporosis Derm: None - Past Surgical History Past Surgical History: Yes General: 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: Oophrectomy, Other (salpingectomy) - Present Medications Home Medications: Ambulatory Orders Medication Instructions Recorded Confirmed Escitalopram Oxalate [Lexapro] 20 mg PO DAILY 09/19/13 09/28/22 Apixaban [Eliquis] 5 mg ORAL BID 09/26/22 09/28/22 Atorvastatin Calcium 40 mg PO HS 09/26/22 09/28/22 HYDROcod/ACETAM 5/325 [[place] 5/325] 1 - 2 tab PO Q6H PRN #20 tablet 09/26/22 09/28/22 Lidocaine Patch 5% [Lidoderm Patch] 1 patch TOP DAILY PRN #10 patch 09/26/22 09/28/22 Metoprolol Succinate [Toprol Xl] 25 mg PO DAILY 09/26/22 09/28/22 - Allergies Allergies/Adverse Reactions: Allergies Allergy/AdvReac Type Severity Reaction Status Date / Time chlordiazepoxide HCl * Allergy Rash Verified 09/28/22 14:57 [From Librium] phenobarbital Allergy Rash Verified 09/28/22 14:57 - Social History Does the pt smoke?: No Smoking Status: Unknown if ever smoked Does the pt drink ETOH?: Yes Does the pt have substance abuse?: No - Immunizations Immunizations are current?: No Immunizations: No immun - POLST Patient has POLST: No PD ED PE NORMAL - Vitals Vital signs reviewed: Yes - General General: Alert and oriented X 3, No acute distress, Well developed/nourished - Derm Derm: Normal color, Warm and dry - Extremities Extremities: No calf tenderness / cord, Other (left knee with focal swelling and tenderness anterolateral subcut c/w hematoma/contusion. There is purple bruising and soft tissue swelling pedal and posterior to that and toward back of knee laterally without tenderness c/w dependent leeching of the blood in soft tissue. ) - Neuro Neuro: Alert and oriented X 3, No motor deficit, No sensory deficit, Normal speech Results - Vitals Vitals: Vital Signs - 24 hr 09/28/22 14:53 Temperature 36.8 C Heart Rate 79 Respiratory 12 Rate Blood Pressure 144/69 H O2 Saturation 97 Oxygen O2 Source Room air - Rads (name of study) left knee Radiology: Prelim report reviewed (arthritic, no fractures. ), See rad report PD MEDICAL DECISION MAKING - ED course Complexity details: reviewed results, considered differential (hematoma left knee with now dependent bruising developing. ), d/w patient Departure - Departure Disposition: 01 Home, Self Care Clinical Impression: Hematoma of left knee region Condition: Stable Record reviewed to determine appropriate education?: Yes Instructions: ED Hematoma Follow-Up: ANGE FONG ARNP [Primary Care Provider] - Comments: You can use an Alexandr wrap or other wrap to help with the swelling. The bruising through the area is basically a gravity leaching of the blood from the hematoma from when you fell. This is a collection of blood in the soft tissue. Your x-ray does not show any fractures. I would anticipate some even further bruising develop in the gravity areas around the leg and knee and even perhaps down to the ankle. There can be some associated swelling. This should resolve slowly over time as the body resorbs the blood from the area. Discharge Date/Time: 09/28/22 16:13
--- NOTE | 2022-09-28 15:58 | XRAY Report ---
PROCEDURE: Knee 3 View LT INDICATIONS: fall with bruising/pain lateral knee TECHNIQUE: 3 views of the left knee(s) were acquired. COMPARISON: None. FINDINGS: Bones: No fractures or dislocations. Moderate to severe tricompartmental osteoarthritis is seen mos t notably in medial femoral tibial compartment with near complete loss of joint space, subchondral sc lerosis and marginal osteophyte formation. No suspicious bony lesions. Soft tissues: No significant joint effusion. Chondrocalcinosis in medial and lateral femoral tibial compartments are seen.. IMPRESSION: No acute left knee fracture or dislocation. Moderate to severe tricompartmental osteoart hritis and chondrocalcinosis as above. No significant joint effusion. Reviewed by: Marty Guallpa MD on 09/28/2022 3:57 PM PDT Approved by: Marty Guallpa MD on 09/28/2022 3:57 PM PDT Station ID: [id number]
== END 2022-09-28 16:13 | disposition home or self-care (01) ==
LOC: ED 14:45
DX: S80.02XD Contusion of left knee, subsequent encounter (principal); W19.XXXD Unspecified fall, subsequent encounter
CPT/HCPCS: 99282; 99283

== ENCOUNTER 2022-11-23 07:34 | Outpatient (CLI) | payer MEDICARE, OTHER | END 2022-11-23 07:35 | disposition EMS.NT | LOC: EMS 07:34 | DX: R58 Hemorrhage, not elsewhere classified (principal) ==

== ENCOUNTER 2022-11-23 08:48 | Emergency (ER) | payer MEDICARE, OTHER ==
[2022-11-23 09:07] VITALS: BP 141/56
--- NOTE | 2022-11-23 09:16 | ED Physician Documentation ---
PD HPI HEENT - Stated complaint Stated Complaint: GUMS BLEEDING - Chief complaint Chief Complaint: Heent - History obtained from History obtained from: Patient - History of Present Illness Timing - onset: Last night Timing - details: Abrupt onset, Still present, Waxing and waning Location: Tooth (she had 4 teeth extracted to make room for new bridge 8 days ago and had been healing well. During night she started to have bleeding from left lower extraction socket that has continued with fairly continual oozing of blood despite biting on gauze. take eliquis and has been on it regularly.) Improves: Other (not improved with biting gauze in the area at home, as had done post extraction initially.) Associated symptoms: No: Fever, Congestion Similar symptoms before: Has not had sx before Recently seen: Clinic (dentist/oral surgeon 8 days ago. Has f/u appt next .) Review of Systems Constitutional: denies: Fever, Chills Nose: denies: Congestion Throat: reports: Oral lesions / sores (the 4 extraction sites had been sore but improving. no purulence. no gum redness/swelling.). 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 : Retention, Frequency HEENT: None Psych: None, Depression Musculoskeletal: Osteoarthritis, Osteoporosis Derm: None - Past Surgical History Past Surgical History: Yes General: Appendectomy /SPOOL SORTER: Oophrectomy, Other (salpingectomy) - Present Medications Home Medications: Ambulatory Orders Medication Instructions Recorded Confirmed Escitalopram Oxalate [Lexapro] 20 mg PO DAILY 09/19/13 11/23/22 Apixaban [Eliquis] 5 mg ORAL BID 09/26/22 11/23/22 Atorvastatin Calcium 40 mg PO HS 09/26/22 11/23/22 Metoprolol Succinate [Toprol Xl] 25 mg PO DAILY 09/26/22 11/23/22 - Allergies Allergies/Adverse Reactions: Allergies Allergy/AdvReac Type Severity Reaction Status Date / Time chlordiazepoxide HCl * Allergy Rash Verified 11/23/22 09:08 [From Librium] phenobarbital Allergy Rash Verified 11/23/22 09:08 - Social History Does the pt smoke?: No Smoking Status: Unknown if ever smoked Does the pt drink ETOH?: Yes Does the pt have substance abuse?: No - Immunizations Immunizations are current?: No Immunizations: No immun - POLST Patient has POLST: No PD ED PE NORMAL - Vitals Vital signs reviewed: Yes - General General: Alert and oriented X 3, No acute distress, Well developed/nourished - HEENT HEENT: Other (right lower extraction sites with vicryl sutures still intact. no redness nor bleeding. left single extraction socket with suture loose, clot in the socket with some healing tissue, and mild oozing of red blood. not tender. ) - Neck Neck: Supple, no meningeal sign, No adenopathy Results - Vitals Vitals: Vital Signs - 24 hr 11/23/22 09:01 Temperature 36.3 C L Heart Rate 82 Respiratory 16 Rate Blood Pressure 141/56 H O2 Saturation 96 Oxygen O2 Source Room air Procedures - General procedure General procedure: I used lido with epi local injection at gum area with very small amount. then placed txa soaked cotton ball into the socket after removing loose stitch material and the clot of purple blood. Patient held this with teeth occlusion for 20 minutes. recheck showed bleeding mostly stopped. battery cautery used to stop bleeding at edge of site and then i replaced single vicryl suture pulling edges of gingival tissue over the socket. No further bleeding. Departure - Departure Disposition: 01 Home, Self Care Clinical Impression: Status post tooth extraction, Bleeding gums Condition: Stable Follow-Up: Tiana Richter, [facility] DIRECT[facility] [Primary Care Provider] - Comments: No chewing in that area. If you have recurrent bleeding, use a cottonball moistened and hold it in place in the area like we did here. Hopefully with some cautery of some of the tissue as well as 3 stitching over it, it will allow it to not bleed again. This prior stitch had come loose and there was a clot in the socket that was impeding the ability to really put pressure in the area. Hopefully this will be better now. Follow-up with your dentist/oral surgeon next week as planned. Call them today to see if they want to see you sooner than next . Return to the ER if needed. Discharge Date/Time: 11/23/22 12:39
[2022-11-23] MEDS ORDERED: TRANEXAMIC ACID 1,000 MG/10 ML VIAL NAS STA (09:42)
== END 2022-11-23 12:39 | disposition home or self-care (01) ==
LOC: ED 08:48
DX: K91.840 Postprocedural hemorrhage of a digestive system organ or structure following a digestive system procedure (principal)
CPT/HCPCS: 99282

== ENCOUNTER 2023-07-22 12:02 | Emergency (ER) | payer MEDICARE, OTHER ==
[2023-07-22 12:39] VITALS: O2SAT 98
--- NOTE | 2023-07-22 12:45 | ED Physician Documentation ---
PD HPI FEMALE - Stated complaint Stated Complaint: - Chief complaint Chief Complaint: UTI - History obtained from History obtained from: Patient - Additional information Additional information: Patient is an 83-year-old female presenting for evaluation of urinary frequency. Patient reports that she often has the urge to go but only a small amount has been comin out. She reports this was going on for 2 to 3 weeks. No hematuria. She is on a blood thinner. No fever, chest pain, difficulty breathing, abdominal pain or vomiting. No vaginal bleeding or discharge. 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 HEENT: None Psych: None, Depression Musculoskeletal: Osteoarthritis, Osteoporosis Derm: None - Past Surgical History Past Surgical History: Yes General: Appendectomy /VITICULTURE TEACHER: Oophrectomy, Other (salpingectomy) - Present Medications Home Medications: Ambulatory Orders Medication Instructions Recorded Confirmed Escitalopram Oxalate [Lexapro] 20 mg PO DAILY 09/19/13 07/22/23 Apixaban [Eliquis] 5 mg ORAL BID 09/26/22 07/22/23 Atorvastatin Calcium 40 mg PO HS 09/26/22 07/22/23 Metoprolol Succinate [Toprol Xl] 25 mg PO DAILY 09/26/22 07/22/23 cephALEXin [Keflex] 500 mg PO Q6H #28 cap 07/22/23 - Allergies Allergies/Adverse Reactions: Allergies Allergy/AdvReac Type Severity Reaction Status Date / Time chlordiazepoxide HCl * Allergy Rash Verified 07/22/23 12:21 [From Librium] phenobarbital Allergy Rash Verified 07/22/23 12:21 - Social History Does the pt smoke?: No Smoking Status: Unknown if ever smoked Does the pt drink ETOH?: Yes Does the pt have substance abuse?: No - Immunizations Immunizations are current?: No Immunizations: No immun - POLST Patient has POLST: No PD ED PE NORMAL - General General: Alert and oriented X 3, No acute distress, Well developed/nourished - HEENT HEENT: Atraumatic - Neck Neck: Supple, no meningeal sign - Cardiac Cardiac: RRR - Respiratory Respiratory: No respiratory distress, Clear bilaterally - Abdomen Abdomen: Normal bowel sounds, Soft, Non tender, Non distended - Derm Derm: Warm and dry - Neuro Neuro: Normal speech Results - Vitals Vitals: Vital Signs - 24 hr 07/22/23 07/22/23 12:18 13:29 Temperature 36.2 C L 36.5 C Heart Rate 81 80 Respiratory 20 18 Rate Blood Pressure 168/110 H 140/80 H O2 Saturation 98 98 Oxygen O2 Source Room air - Labs Labs: Laboratory Tests 07/22/23 12:50 Urine Color YELLOW Urine Clarity CLOUDY Urine pH 7.5 Ur Specific [place] 1.015 Urine Protein TRACE Urine Glucose (UA) NEGATIVE Urine Ketones NEGATIVE Urine Occult Blood TRACE-INTA Urine Nitrite NEGATIVE Urine Bilirubin NEGATIVE Urine Urobilinogen 0.2 (NORMAL) Ur Leukocyte Esterase LARGE H Urine RBC 6-10 H Urine WBC >25 H Ur Squamous Epith Cells RARE Squamous Urine Bacteria Rare Ur Microscopic Review INDICATED Urine Culture Comments INDICATED PD Medical Decision Making - ED course Complexity details: reviewed results, re-evaluated patient ED course: Patient with UTI symptoms for the past several weeks. She has no abdominal tenderness and does not appear septic. Urinalysis is suggestive of infection so we will start with antibiotics. Culture is pending. Patient counseled on treatment plan as well as concerning symptoms to return for. Departure - Departure Disposition: 01 Home, Self Care Clinical Impression: Urinary tract infection Condition: Stable Instructions: ED UTI Cystitis Female Prescriptions: cephALEXin [Keflex] 500 mg PO Q6H #28 cap Comments: Your testing today shows a urine infection. Have sent a prescription to the [facility]. We have also sent your urine for culture. If for some reason you need a different antibiotic we will notify you. Please make sure to complete the course of the antibiotic. Return to the ER with worsening symptoms such as fever or inability to tolerate the antibiotic. Forms: PCP List Discharge Date/Time: 07/22/23 13:29
[2023-07-22 12:56] LABS: BILIRUBIN,URINE NEGATIVE (NEGATIVE); GLUCOSE, URINE (UA) NEGATIVE (NEGATIVE); KETONES,URINE (UA) NEGATIVE (NEGATIVE); LEUKOCYTE ESTERASE, URINE LARGE (NEGATIVE); NITRITE,URINE NEGATIVE (NEGATIVE); OCCULT BLOOD,URINE TRACE-INTA (NEGATIVE); PH,URINE 7.5 PH (5.0-7.5); PROTEIN,URINE TRACE mg/dL (NEGATIVE); UROBILINOGEN,URINE 0.2 (NORMAL) E.U./dL (NORMAL)
[2023-07-22 13:08] LABS: BACTERIA,URINE Rare /HPF (None Seen); CLARITY,URINE CLOUDY (CLEAR); SQUAMOUS EPITHELIAL CELL,UR RARE Squamous (<= Few); WBC,URINE >25 /HPF (0-5)
[2023-07-22] MEDS ORDERED: cephALEXin 250 MG CAPSULE PO STA (13:17)
[2023-07-22 13:37] VITALS: BP 140/80
== END 2023-07-22 13:29 | disposition home or self-care (01) ==
LOC: ED 12:02
DX: N39.0 Urinary tract infection, site not specified (principal); I48.91 Unspecified atrial fibrillation; E78.00 Pure hypercholesterolemia, unspecified; Z79.01 Long term (current) use of anticoagulants; Z79.899 Other long term (current) drug therapy
CPT/HCPCS: 81001; 87086; 99283; A9270; 81003; 87077; 87181

== ENCOUNTER 2023-09-16 08:41 | Outpatient (CLI) | payer MEDICARE, OTHER ==
--- NOTE | 2023-09-16 12:41 | CT Report ---
PROCEDURE: CHEST WO INDICATIONS: LUNG NODULE TECHNIQUE: Noncontrast 1mm axial images were acquired from the pulmonary apices to the posterior costophrenic an gles. Axial 5 mm soft tissue kernel reconstructions were performed as well as 8 mm axial MIP and cor onal and sagittal 5 mm reformations. For radiation dose reduction, the following was used: automate d exposure control, adjustment of mA and/or kV according to patient size. COMPARISON: CT 09/26/2022 FINDINGS: Image quality: Excellent. Lungs and pleura: No consolidation. No pleural effusions. No pneumothorax. Stable 4 x 6 mm solid nod ule in the right upper lobe (series 3, image 61). Mediastinum: Heart size is enlarged. No pericardial effusion. No large vessel abnormality. No mediast inal adenopathy by size criteria. Two-vessel coronary calcifications. Chest wall and lower neck: Thyroid is unremarkable. No axillary or supraclavicular adenopathy by size . Bones: No aggressive osseous abnormality. Upper Abdomen: Subcentimeter hypoattenuating liver lesions, too small to characterize by CT but likel y small cysts. Cholelithiasis. IMPRESSION: Stable 4 x 6 mm solid nodule in the left upper lobe. Given one-year stability, findings are most cons istent with a statistically benign nodule. No further follow-up per Fleischner Society guidelines. Cholelithiasis without evidence of acute cholecystitis. Reviewed by: Delroy Kay on 09/16/2023 12:39 PM PDT Approved by: Delroy Kay on 09/16/2023 12:39 PM PDT Station ID: [id number]
== END 2023-09-16 08:42 | disposition home or self-care (01) ==
LOC: DI 08:41
PROVIDERS: ATTEND Registered Nurse
DX: R91.1 Solitary pulmonary nodule (principal); K80.20 Calculus of gallbladder without cholecystitis without obstruction

== ENCOUNTER 2024-07-02 14:52 | Emergency (ER) | payer MEDICARE, OTHER ==
--- NOTE | 2024-07-02 15:20 | ED Physician Documentation ---
History of Present Illness - Stated complaint Stated Complaint: SOA/CHEST PX - Chief complaint Chief Complaint: Cardiac - History obtained from History obtained from: Patient - History of Present Illness Timing: Prior to arrival - Additonal information Additional information: Patient is an 84-year-old female presenting to the emergency department after chest pain that started about an hour prior to arrival and lasted for approximately 10 minutes. Patient states she was driving in the car with her when symptoms came on suddenly. Patient has past medical history of atrial fibrillation and is on Eliquis 2.5 as she has had a Watchman procedure done about 3 weeks ago. Patient denies any shortness of breath associate with her symptoms. No history of coronary artery disease. She denies any fevers, chills, nausea, or vomiting. 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 HEENT: None Psych: None, Depression Musculoskeletal: Osteoarthritis, Osteoporosis Derm: None - Past Surgical History Past Surgical History: Yes General: Appendectomy /REFERENCE AND INSTRUCTION LIBRARIAN: Oophrectomy, Other Cardiovascular: Pacemaker - Present Medications Home Medications: Ambulatory Orders Medication Instructions Recorded Confirmed Escitalopram Oxalate [Lexapro] 20 mg PO DAILY 09/19/13 06/04/24 Apixaban [Eliquis] 5 mg ORAL BID 09/26/22 06/04/24 Atorvastatin Calcium 40 mg PO HS 09/26/22 06/04/24 Metoprolol Succinate [Toprol Xl] 25 mg PO DAILY 09/26/22 06/04/24 - Allergies Allergies/Adverse Reactions: Allergies Allergy/AdvReac Type Severity Reaction Status Date / Time chlordiazepoxide HCl * Allergy Rash Verified 07/02/24 14:55 [From Librium] phenobarbital Allergy Rash Verified 07/02/24 14:55 - Social History Does the pt smoke?: No Smoking Status: Never smoker Does the pt drink ETOH?: Yes Does the pt have substance abuse?: No - Immunizations Immunizations are current?: No Immunizations: No immun - POLST Patient has POLST: No PD ED PE NORMAL - Vitals Vital signs reviewed: Yes - General General: Alert and oriented X 3 - HEENT HEENT: Atraumatic, PERRL, EOMI - Neck Neck: Supple, no meningeal sign, C-Spine cleared by NEXUS criteria - Cardiac Cardiac: RRR, No murmur, No gallop, No rub, Strong equal pulses - Respiratory Respiratory: No respiratory distress, Clear bilaterally - Abdomen Abdomen: Normal bowel sounds, Soft, Non tender, Non distended - Female Female : Deferred - Derm Derm: Normal color, No rash - Extremities Extremities: No deformity - Neuro Neuro: Alert and oriented X 3 Results - Vitals Vitals: Vital Signs - 24 hr 07/02/24 07/02/24 07/02/24 14:55 15:28 15:58 Temperature 36.8 C Heart Rate 82 67 69 Respiratory 16 16 14 Rate Blood Pressure 167/81 H 174/66 H 185/85 H O2 Saturation 100 96 97 Oxygen O2 Source Room air - EKG (time done) 1500 EKG releavant findings:: EKG personally interpreted by author of this note. Relevant findings are: Rate: Rate (enter#), Vel, Tachy, Other Rhythm: NSR [place]: Normal Intervals: Normal ME QRS: Normal Ischemia: Normal ST segments Compare to prior EKG: Unchanged from prior EKG Computer interpretation: Agree with computer, Disagree with computer (No lbbb) 1756 EKG releavant findings:: EKG personally interpreted by author of this note. Relevant findings are: Rate: Rate (enter#) Rhythm: NSR [place]: Normal Intervals: Normal ME QRS: Normal Ischemia: Normal ST segments Compare to prior EKG: Unchanged from prior EKG Computer interpretation: Agree with computer - Labs Labs: Laboratory Tests 07/02/24 07/02/24 07/02/24 15:15 15:15 15:19 WBC 9.7 RBC 4.14 L Hgb 12.5 Hct 39.7 MCV 95.9 MCH 30.2 MCHC 31.5 L RDW 14.6 Plt Count 257 MPV 9.1 Neut # (Auto) 6.4 Lymph # (Auto) 2.2 [place] # (Auto) 0.9 Eos # (Auto) 0.1 Baso # (Auto) 0.1 Absolute Nucleated RBC 0.00 Nucleated RBC % 0.0 PT 15.3 H INR 1.4 H Sodium Potassium Chloride Carbon Dioxide Anion Gap BUN Creatinine Estimated GFR (MDRD) Glucose Calcium Magnesium 1.9 Total Bilirubin AST ALT Alkaline Phosphatase Troponin I High Sens Total Protein Albumin Globulin Albumin/Globulin Ratio Lipase 07/02/24 07/02/24 15:19 17:48 WBC RBC Hgb Hct MCV MCH MCHC RDW Plt Count MPV Neut # (Auto) Lymph # (Auto) [place] # (Auto) Eos # (Auto) Baso # (Auto) Absolute Nucleated RBC Nucleated RBC % PT INR Sodium 139 Potassium 3.9 Chloride 105 Carbon Dioxide 29 Anion Gap 5.0 L BUN 9 Creatinine 0.7 Estimated GFR (MDRD) 79 L Glucose 88 Calcium 10.0 Magnesium Total Bilirubin 0.6 AST 16 ALT 10 Alkaline Phosphatase 136 H Troponin I High Sens 12.3 13.0 Total Protein 6.6 Albumin 3.8 Globulin 2.8 Albumin/Globulin Ratio 1.4 Lipase 66 - Rads (name of study) Chest X-ray Relevant Findings:: EMP independent interpretation of test (no acute cardiopulmonary findings) PD Medical Decision Making - ED course ED course: Patient presents to the emergency department with intermittent chest pain. She notes symptoms started on Saturday lasted for about 10 minutes and then resolved she notes similar incidents that happened today shortly prior to arrival. Patient denies any symptoms here. Patient recently had watchman placed in [place] about 3 weeks ago has been tapering down her Eliquis as instructed by her coal chemist. Patient was seen for similar instance here on 06/04 with no acute findings. Labs here in the emergency department showed no significant leukocytosis. No significant anemia. Initial troponin is within normal range and EKG shows no signs of ischemia. No significant change from previous EKG obtained back in 06/04/24. INR-1.4 is stable. Chest X-ray shows no acute cardiopulmonary process. Repeat troponin here in the emergency department shows no significant increase concerning for ischemia repeat EKG shows no acute changes from previous EKG. Patient continues to deny any chest pain at this time. Patient feels safe to go home. Her heart score is 3. 2 EKGs and 2 troponins showed no significant change. Patient reassured on findings and feels safe to go home. Instructed patient to follow-up with her PCP in 1 week for reevaluation and continue to follow-up with cardiology as scheduled. Departure - Departure Disposition: Home, Self Care Clinical Impression: Atypical chest pain Condition: Good Comments: You were seen here in the emergency department for symptoms of chest pain your workup here was reassuring do not suspect any cardiac issues at this time. You are following with a coal chemist given your history of watchman procedure please follow-up with them at next scheduled appointment. Given reassuring findings you need to follow-up with your PCP in the outpatient setting to ensure resolution of symptoms.Please return to the ED with follow-up with your PCP to ensure resolution of symptoms. Return to the ED if any of these symptoms persist Forms: PCP List
[2024-07-02 15:26] LABS: BASOPHILS # (AUTO) 0.1 10^3/uL (0.0-0.1); BASOPHILS % (AUTO) 0.6 %; EOSINOPHILS # (AUTO) 0.1 10^3/uL (0.0-0.7); EOSINOPHILS % (AUTO) 1.3 %; HCT - HEMATOCRIT 39.7 % (37.0-47.0); HGB - HEMOGLOBIN 12.5 g/dL (12.0-16.0); LYMPHOCYTES # (AUTO) 2.2 10^3/uL (1.5-3.5); LYMPHOCYTES % (AUTO) 22.2 %; MEAN CORPUSCULAR HEMOGLOBIN 30.2 pg (27.0-31.0); MEAN CORPUSCULAR HGB CONC 31.5 g/dL (32.0-36.0); MEAN CORPUSCULAR VOLUME 95.9 fL (81.0-99.0); MEAN PLATELET VOLUME 9.1 fL (7.9-10.8); MONOCYTES # (AUTO) 0.9 10^3/uL (0.0-1.0); MONOCYTES % (AUTO) 9.5 %; NEUTROPHILS # (AUTO) 6.4 10^3/uL (1.5-6.6); PLT - PLATELET COUNT 257 10^3/uL (130-450); RED BLOOD COUNT 4.14 10^6/uL (4.20-5.40); RED CELL DISTRIBUTION WIDTH 14.6 % (12.0-15.0); WHITE BLOOD COUNT 9.7 x10^3/uL (4.8-10.8)
[2024-07-02 15:44] LABS: ALBUMIN 3.8 g/dL (3.2-5.5); ALBUMIN/GLOBULIN RATIO 1.4 (1.0-2.2); BILIRUBIN,TOTAL 0.6 mg/dL (0.2-1.0); CREATININE 0.7 mg/dL (0.6-1.3); POTASSIUM 3.9 mmol/L (3.5-4.5); TOTAL PROTEIN 6.6 g/dL (6.4-8.9)
[2024-07-02 15:46] LABS: TROPONIN I HIGH SENSITIVITY 12.3 ng/L (2.3-14.8)
[2024-07-02 15:53] LABS: INR 1.4 (0.8-1.2); PT - PROTHROMBIN TIME 15.3 secs (9.9-12.6)
--- NOTE | 2024-07-02 16:17 | XRAY Report ---
PROCEDURE: Chest 1V INDICATIONS: Chest Pain TECHNIQUE: One view of the chest was acquired. COMPARISON: None. FINDINGS: Surgical changes and devices: Left chest wall battery device is noted. Lungs and pleura: No pleural effusions or pneumothorax. Lungs are clear. Mediastinum: Mediastinal contours appear normal. Heart size is enlarged. Bones and chest wall: No suspicious bony lesions. Overlying soft tissues appear unremarkable. IMPRESSION: No acute cardiopulmonary process. Reviewed by: Marty Guallpa MD on 07/02/2024 4:16 PM PDT Approved by: Marty Guallpa MD on 07/02/2024 4:16 PM PDT Station ID: [id number]
[2024-07-02 19:31] VITALS: BP 150/60; O2SAT 99
== END 2024-07-02 19:24 | disposition home or self-care (01) ==
LOC: ED 14:52
DX: R07.89 Other chest pain (principal); I48.91 Unspecified atrial fibrillation; Z79.01 Long term (current) use of anticoagulants; E78.00 Pure hypercholesterolemia, unspecified
CPT/HCPCS: 36415; 80053; 83690; 83735; 84484; 85025; 85610; 93005; 99283; 99284

== ENCOUNTER 2024-07-05 16:37 | Emergency (ER) | payer MEDICARE, OTHER ==
--- NOTE | 2024-07-05 17:22 | ED Physician Documentation ---
History of Present Illness - Stated complaint Stated Complaint: CHEST BURNING - Chief complaint Chief Complaint: Cardiac - History obtained from History obtained from: Patient, Family - History of Present Illness Timing: Other (worse today, ongoing for several days.) Pain level max: 5 Pain level now: 5 - Additonal information Additional information: 84-year-old female states that she is 3 weeks status post a Watchman procedure. She states that she had a "cardiac workup" 3 days ago. She states that she has had burning sensations to her chest, radiates to the jaw occasionally. She states Tums and Mylanta does help but it returned after about 30 minutes. She states that she does have a history of GERD. She states this feels similar. No change with exertion, inspiration. Is worse with eating and drinking. Review of Systems Constitutional: denies: Fever, Chills Nose: denies: Rhinorrhea / runny nose, Congestion Cardiac: denies: Palpitations Respiratory: denies: Cough GI: denies: Vomiting, Diarrhea : denies: Dysuria Skin: denies: Rash Musculoskeletal: denies: Neck pain, Back pain Neurologic: denies: Headache PD PAST MEDICAL HISTORY - Past Medical History Cardiovascular: High cholesterol, Atrial fibrillation Respiratory: None Neuro: None Endocrine/Autoimmune: None GI: GERD, Chronic constipation BUSINESS DEVELOPMENT INTERN: None : Retention, Frequency HEENT: None Psych: None, Depression Musculoskeletal: Osteoarthritis, Osteoporosis Derm: None - Past Surgical History Past Surgical History: Yes General: Appendectomy /BUSINESS DEVELOPMENT INTERN: Oophrectomy, Other Cardiovascular: Pacemaker - Present Medications Home Medications: Ambulatory Orders Medication Instructions Recorded Confirmed Escitalopram Oxalate [Lexapro] 20 mg PO DAILY 09/19/13 06/04/24 Apixaban [Eliquis] 5 mg ORAL BID 09/26/22 06/04/24 Atorvastatin Calcium 40 mg PO HS 09/26/22 06/04/24 Metoprolol Succinate [Toprol Xl] 25 mg PO DAILY 09/26/22 06/04/24 Esomeprazole Magnesium [Nexium] 40 mg PO DAILY #30 cap 07/05/24 Famotidine [Pepcid] 20 mg PO BID #60 tablet 07/05/24 Sucralfate [Carafate] 1 gm PO ACHS #60 tablet 07/05/24 - Allergies Allergies/Adverse Reactions: Allergies Allergy/AdvReac Type Severity Reaction Status Date / Time chlordiazepoxide HCl * Allergy Rash Verified 07/05/24 17:08 [From Librium] phenobarbital Allergy Rash Verified 07/05/24 17:08 - Social History Does the pt smoke?: No Smoking Status: Never smoker Does the pt drink ETOH?: Yes Does the pt have substance abuse?: No - Immunizations Immunizations are current?: No Immunizations: No immun - POLST Patient has POLST: No PD ED PE NORMAL - Vitals Vital signs reviewed: Yes - General General: Alert and oriented X 3, No acute distress - HEENT HEENT: Moist mucous membranes - Neck Neck: Supple, no meningeal sign - Cardiac Cardiac: RRR, Strong equal pulses - Respiratory Respiratory: No respiratory distress, Clear bilaterally - Abdomen Abdomen: Soft, Non tender, Non distended - Derm Derm: Warm and dry - Extremities Extremities: No edema, No calf tenderness / cord - Neuro Neuro: Alert and oriented X 3 - Psych Psych: Normal mood, Normal affect Results - Vitals Vitals: Vital Signs - 24 hr 07/05/24 07/05/24 07/05/24 17:01 17:07 19:17 Temperature 37.3 C 37.3 C Heart Rate 115 H 77 77 Respiratory 18 16 16 Rate Blood Pressure 130/80 144/69 H 144/69 H O2 Saturation 95 97 97 Oxygen O2 Source Room air - EKG (time done) 1718 EKG releavant findings:: EKG personally interpreted by author of this note. Relevant findings are: Rate: Rate (enter#) (82) Rhythm: NSR Ray: Normal Intervals: Normal [place] QRS: Normal, LVH (With repolarization abnormalities) - Labs Labs: Laboratory Tests 07/05/24 07/05/24 17:23 17:23 WBC 10.2 RBC 4.34 Hgb 13.0 Hct 41.2 MCV 94.9 MCH 30.0 MCHC 31.6 L RDW 14.2 Plt Count 263 MPV 9.2 Neut # (Auto) 7.4 H Lymph # (Auto) 1.8 Gaines # (Auto) 0.8 Eos # (Auto) 0.1 Baso # (Auto) 0.1 Absolute Nucleated RBC 0.00 Nucleated RBC % 0.0 Sodium 138 Potassium 3.8 Chloride 104 Carbon Dioxide 28 Anion Gap 6.0 BUN 10 Creatinine 0.7 Estimated GFR (MDRD) 79 L Glucose 127 H Calcium 9.7 Total Bilirubin 0.7 AST 17 ALT 11 Alkaline Phosphatase 120 Troponin I High Sens 17.1 H* Total Protein 6.8 Albumin 3.9 Globulin 2.9 Albumin/Globulin Ratio 1.3 Lipase 100 H - Rads (name of study) cxr Relevant Findings:: Final report received, See rad report PD Medical Decision Making - ED course Complexity details: reviewed results, re-evaluated patient, considered differential (No ST elevation [place], no aortic dissection, no PE, no tension pneumothorax, no aortic aneurysm), d/w patient ED course: No acute findings on chest x-ray today, EKG. No acute laboratory abnormalities. She was given a GI cocktail and symptoms fully resolved immediately. Symptoms are consistent with GERD. We will place her on a PPI, H2 naomi and Carafate for home. Recommend she follow-up with her PCP for an EGD. She states that she had read that the Watchman procedure could cause "esophageal problems". Recommend that she discuss this with her video production engineer. No evidence of PE, acute [place]. Patient counseled regarding signs and symptoms for which I believe and urgent re-evaluation would be necessary. Patient with good understanding of and agreement to plan and is comfortable going home at this time This document was made in part using voice recognition software. While efforts are made to proofread this document, sound alike and grammatical errors may occur. Departure - Departure Disposition: 01 Home, Self Care Clinical Impression: GERD (gastroesophageal reflux disease) Qualifiers: Esophagitis presence: esophagitis presence not specified Qualified Code(s): K21.9 - Gastro-esophageal reflux disease without esophagitis Condition: Good Instructions: ED GERD Follow-Up: Carlos Iniguez MD [Primary Care Provider] - Prescriptions: Sucralfate [Carafate] 1 gm PO ACHS #60 tablet Esomeprazole Magnesium [Nexium] 40 mg PO DAILY #30 cap Famotidine [Pepcid] 20 mg PO BID #60 tablet Comments: Your prescriptions were sent to [facility] in [place]. Please follow-up with your doctor for further care. I do recommend discussing your symptoms with your video production engineer to see if they were related to your recent Watchman procedure. They may refer you back to your primary care provider. Forms: PCP List Discharge Date/Time: 07/05/24 19:18
[2024-07-05 17:30] LABS: BASOPHILS # (AUTO) 0.1 10^3/uL (0.0-0.1); BASOPHILS % (AUTO) 0.5 %; EOSINOPHILS # (AUTO) 0.1 10^3/uL (0.0-0.7); EOSINOPHILS % (AUTO) 0.8 %; HCT - HEMATOCRIT 41.2 % (37.0-47.0); LYMPHOCYTES # (AUTO) 1.8 10^3/uL (1.5-3.5); LYMPHOCYTES % (AUTO) 17.8 %; MEAN CORPUSCULAR HGB CONC 31.6 g/dL (32.0-36.0); MEAN CORPUSCULAR VOLUME 94.9 fL (81.0-99.0); MEAN PLATELET VOLUME 9.2 fL (7.9-10.8); MONOCYTES # (AUTO) 0.8 10^3/uL (0.0-1.0); MONOCYTES % (AUTO) 7.9 %; NEUTROPHILS # (AUTO) 7.4 10^3/uL (1.5-6.6); NEUTROPHILS % (AUTO) 72.7 %; PLT - PLATELET COUNT 263 10^3/uL (130-450); RED BLOOD COUNT 4.34 10^6/uL (4.20-5.40); RED CELL DISTRIBUTION WIDTH 14.2 % (12.0-15.0); WHITE BLOOD COUNT 10.2 x10^3/uL (4.8-10.8)
[2024-07-05] MEDS: SUCRALFATE 1 GM/10 ML UDC PO STA (17:34)
[2024-07-05] MEDS: FAMOTIDINE 20 MG TABLET PO STA (17:34)
[2024-07-05] MEDS: LIDOCAINE VISCOUS 2% 15 ML UDC MM STA (17:35)
[2024-07-05] MEDS: MAG HYDROX/AL HYDROX/SIMETH 30 ML UDC PO STA (17:35)
[2024-07-05 17:51] LABS: ALBUMIN 3.9 g/dL (3.2-5.5); ALBUMIN/GLOBULIN RATIO 1.3 (1.0-2.2); BILIRUBIN,TOTAL 0.7 mg/dL (0.2-1.0); CALCIUM 9.7 mg/dL (8.5-10.3); CREATININE 0.7 mg/dL (0.6-1.3); POTASSIUM 3.8 mmol/L (3.5-4.5); TOTAL PROTEIN 6.8 g/dL (6.4-8.9)
[2024-07-05 17:54] VITALS: BP 144/69; O2SAT 97
[2024-07-05 17:55] LABS: TROPONIN I HIGH SENSITIVITY 17.1 ng/L (2.3-14.8)
--- NOTE | 2024-07-05 18:27 | XRAY Report ---
PROCEDURE: Chest 1V INDICATIONS: Chest pain TECHNIQUE: One view of the chest was acquired. COMPARISON: 07/02/2024, 06/04/2024. FINDINGS: Surgical changes and devices: None. Lungs and pleura: No pleural effusions or pneumothorax. Lungs are clear. Mediastinum: Mediastinal contours appear normal. Heart size is enlarged. Bones and chest wall: No suspicious bony lesions. Overlying soft tissues appear unremarkable. IMPRESSION: No acute cardiopulmonary process. Reviewed by: Mraty Olson MD on 07/05/2024 6:26 PM PDT Approved by: Marty Olson MD on 07/05/2024 6:26 PM PDT Station ID: [id number]
== END 2024-07-05 19:18 | disposition home or self-care (01) ==
LOC: ED 16:37
DX: K21.9 Gastro-esophageal reflux disease without esophagitis (principal); Z98.890 Other specified postprocedural states; E78.00 Pure hypercholesterolemia, unspecified; I48.91 Unspecified atrial fibrillation; Z79.01 Long term (current) use of anticoagulants; Z95.0 Presence of cardiac pacemaker; Z79.899 Other long term (current) drug therapy
CPT/HCPCS: 36415; 71045; 80053; 83690; 84484; 85025; 93005; 99284; A9270